=== PATIENT | male | born 1955 | race Caucasian/White ===

== ENCOUNTER 2016-07-14 07:36 | Day surgery (SDC) | payer OTHER ==
[2016-07-10 11:04] VITALS: BMI 24.6
[2016-07-14] MEDS ORDERED: PROPOFOL 20 ML ONE ×2 (07:40)
[2016-07-14 09:47] VITALS: BP 112/65; PULSE 62; TEMP 98
== END 2016-07-14 09:49 | disposition home or self-care (01) ==
LOC: FASU-ENDO 07:36
PROVIDERS: ATTEND Internal Medicine Gastroenterology
PROC: 0DJD8ZZ Inspection of Lower Intestinal Tract, Via Natural or Artificial Opening Endoscopic (ICD-10-PCS; principal; 2016-07-14 08:36)
DX: Z12.11 Encounter for screening for malignant neoplasm of colon (principal); Z80.0 Family history of malignant neoplasm of digestive organs

== ENCOUNTER 2017-06-05 17:08 | Emergency (ER) | payer OTHER ==
--- NOTE | 2017-06-05 17:14 | PDOC ---
History of Present Illness <Adrian Alaniz - Last Filed: 06/05/17 18:35> - History of Present Illness Initial Comments: 06/05/17 17:53 The patient is a 62 year old male, with no significant past medical history, who presents to the emergency department with his for abdominal pain around 5:00 pm. Patient describes his right mid-abdominal pain as sudden onset, sharp, radiates to right mid- back Patient states his current pain is progressively getting worse. Patient denies having experienced this type of pain before. Patient also states that hes been experiencing the urge to pee but does not produce much urine when he does go to the bathroom. He reports normal bowel movement. Patient also states that he currently feels nauseous. He denies history if kidney stones, denies history of abdominal issues. He denies any recent fevers, chills, headache or dizziness. He denies any recent vomit, diarrhea or constipation. He denies any recent chest pain or shortness of breath. He denies any recent dysuria or hematuria. Allergies: NKA Past surgical history: None reported. Social History: Nonsmoker. Denies EtOH use and recreational drug use. Primary Care Physician: Jared Muhammad <Sherine Chowdhury - Last Filed: 06/05/17 20:36> - General Chief Complaint: Pain Stated Complaint: ABDOMINAL PAIN Time Seen by Provider: 06/05/17 17:14 Past History - Past Medical History Anemia: No Asthma: No Cancer: No Cardiac Disorders: No CVA: No COPD: No CHF: No Dementia: No Diabetes: No GI Disorders: No Disorders: No HTN: No Hypercholesterolemia: No Liver Disease: No Seizures: No Thyroid Disease: No - Surgical History Abdominal Surgery: Yes Appendectomy: Yes Cardiac Surgery: No Cholecystectomy: No Lung Surgery: No Neurologic Surgery: No Orthopedic Surgery: Yes (FX LEFT THUMB AND RIGHT WRIST A CHILD) - Suicide/Smoking/Psychosocial Hx Smoking History: Former smoker Have you smoked in the past 12 months: No Number of Cigarettes Smoked Daily: 0 If you are a former smoker, when did you quit?: 1983 Hx Alcohol Use: No Drug/Substance Use Hx: No Substance Use Type: None Hx Substance Use Treatment: No <Adrian Alaniz - Last Filed: 06/05/17 18:35> <Sherine Chowdhury - Last Filed: 06/05/17 20:36> - Past Medical History Allergies/Adverse Reactions: Allergies Allergy/AdvReac Type Severity Reaction Status Date / Time No Known Allergies Allergy Verified 07/14/16 06:17 Home Medications: Ambulatory Orders Cetirizine HCl [Zyrtec -] 10 mg PO DAILY 07/10/16 Review of Systems - Review of Systems Comments:: 06/05/17 17:53 CONSTITUTIONAL: Absent: fever, chills, diaphoresis, generalized weakness, malaise, loss of appetite HEENT: Absent: rhinorrhea, nasal congestion, throat pain, throat swelling, difficulty swallowing, mouth swelling, ear pain, eye pain, visual changes CARDIOVASCULAR: Absent: chest pain, syncope, palpitations, irregular heart rate, lightheadedness , peripheral edema RESPIRATORY: Absent: cough, shortness of breath, dyspnea with exertion, orthopnea, wheezing, stridor, hemoptysis GASTROINTESTINAL: Present: right sided mid-abdominal pain, nausea, right sided mid-back pain Absent: abdominal distension, vomiting, diarrhea, constipation, melena, hematochezia GENITOURINARY: Present: urgency,frequency Absent: dysuria, hesitancy, hematuria, flank pain, genital pain MUSCULOSKELETAL: Absent: myalgia, arthralgia, joint swelling SKIN: Absent: rash, itching, pallor HEMATOLOGIC/IMMUNOLOGIC: Absent: easy bleeding, easy bruising, lymphadenopathy, frequent infections ENDOCRINE: Absent: unexplained weight gain, unexplained weight loss, heat intolerance, cold intolerance NEUROLOGIC: Absent: headache, focal weakness or paresthesias, dizziness, unsteady gait, seizure, mental status changes, bladder or bowel incontinence PSYCHIATRIC: Absent: anxiety, depression, suicidal or homicidal ideation, hallucinations. <Sherine Chowdhury - Last Filed: 06/05/17 20:36> ED Treatment Course - LABORATORY CBC & Chemistry Diagram: 06/05/17 18:00 06/05/17 18:00 - RADIOLOGY Radiograph Interpretation: 06/05/17 20:[address] w/out contrast Impression: Minimal to mild right hydroureteronephrosis is seen to the level of the lower pelvis. No definite current ureteral calculus is identified. Evaluation in this regard is somewhat difficult due to numerous periureteral phleboliths. A 2 mm urinary bladder calculus is visualized. Bilateral nonobstructing renal calculi. Reported by: Jared Olivera 06/05/171923 <Sherine Chowdhury - Last Filed: 06/05/17 20:36> Medical Decision Making - Medical Decision Making 06/05/17 18:35 Patient is now pain-free. Abdomen soft and nontender. Likely passage of kidney stone, or migration of the stone has ceased. CT pending. <Adrian Alaniz - Last Filed: 06/05/17 18:35> *DC/Admit/Observation/Transfer <Adrian Alaniz - Last Filed: 06/05/17 18:35> - Attestations Scribe Attestion: 06/05/17 17:55 Documentation prepared by Sherine Chowdhury, acting as chief medical director for Adrian Tipton MD. <Sherine Chowdhury - Last Filed: 06/05/17 20:36> Diagnosis at time of Disposition: Renal colic on right side - Discharge Dispostion Disposition: HOME Condition at time of disposition: Good - Referrals Referrals: Jared Muhammad [Primary Care Provider] - - Patient Instructions Additional Instructions: Stay well hydrated over the next several days. Call your doctor for referral to a urologist. Return to the emergency department immediately with ANY new, persistent or worsening symptoms. Continue any medications as previously prescribed by your physician. You should follow up with your primary doctor as soon as possible regarding today's emergency department visit. . Please make sure your doctor reviews the results of your emergency evaluation. Thank you for coming to the Emergency Department today for your care. It was a pleasure to see you today. Please note that your evaluation is INCOMPLETE until you follow-up with your doctor. - Post Discharge Activity
[2017-06-05] MEDS ORDERED: KETOROLAC TROMETHAMINE 30 MG/1 ML VIAL ONE (17:42)
[2017-06-05] MEDS ORDERED: TAMSULOSIN HCL 0.4 MG CAP.ER.24H (FP) PO ONE (17:45)
[2017-06-05] MEDS ORDERED: ONDANSETRON 4 MG/2 ML VIAL IVPB ONE (17:45)
[2017-06-05] MEDS ORDERED: KETOROLAC TROMETHAMINE 30 MG/1 ML VIAL IVPUSH ONE (17:45)
[2017-06-05] MEDS ORDERED: ONDANSETRON 4 MG/2 ML VIAL ONE (17:48)
[2017-06-05] MEDS ORDERED: TAMSULOSIN HCL 0.4 MG CAP.ER.24H (FP) ONE (17:48)
[2017-06-05] MEDS ORDERED: morphine CARPU-JECT 4 MG/1 ML DISP.SYRIN IVPUSH ONE (17:58)
[2017-06-05] MEDS ORDERED: morphine SULFATE 4 MG/ML VIAL ONE (17:59)
[2017-06-05 18:07] VITALS: BP 142/80; PULSE 52; TEMP 97.3; BMI 24.9
[2017-06-05 18:51] LABS: EOS % 4.7 % (0-4.5); MCH 29.9 pg (25.7-33.7); MCHC 32.5 g/dl (32.0-35.9); MEAN PLT VOLUME 7.6 fl (7.5-11.1); NEUT % 54.3 % (42.8-82.8); PLATELET COUNT 221 K/MM3 (134-434); RDW 12.3 % (11.9-15.9); WHITE BLOOD COUNT 5.2 K/mm3 (4.0-10.8)
[2017-06-05 18:55] LABS: INR 0.94 (0.82-1.09); PROTHROMBIN TIME (PATIENT) 10.5 SEC (10.2-13.0)
[2017-06-05 18:59] LABS: ALBUMIN 4.2 g/dl (3.5-5.0); ALK PHOS 64 U/L (32-92); ANION GAP 10 (8-16); BILIRUBIN,TOTAL 0.5 mg/dl (0.2-1.0); CALCIUM 9.2 mg/dl (8.4-10.2); CO2 26 mmol/L (22-28); CPK 75 IU/L (39-308); CREATININE 0.7 mg/dl (0.6-1.3); GLUCOSE,RANDOM 92 mg/dl (74-106); SGOT/AST 19 U/L (10-42); SGPT/ALT 15 U/L (10-40); TOT PROT 7.1 g/dl (6.4-8.3)
[2017-06-05 19:07] LABS: TROPONIN I (DFP) < 0.03 ng/ml (0.03-0.50)
[2017-06-05 20:26] LABS: URINE APPEARANCE Clear; URINE BILIRUBIN Negative (NEGATIVE); URINE GLUCOSE (UA) Negative (NEGATIVE); URINE KETONE Trace (NEGATIVE); URINE LEUK ESTERASE Negative (NEGATIVE); URINE NITRITE Negative (NEGATIVE); URINE PROTEIN Negative (NEGATIVE); URINE UROBILINOGEN 0.2 (0.2-1.0)
[2017-06-05 20:28] LABS: URINE BLOOD 3+ (NEGATIVE); URINE COLOR YELLOW
--- NOTE | 2017-06-05 20:35 | PDOC ---
*Physical Exam - Vital Signs Last Vital Signs Temp Pulse Resp BP Pulse Ox 97.3 F L 52 L 18 142/80 100 06/05/17 17:10 06/05/17 17:10 06/05/17 17:10 06/05/17 17:10 06/05/17 17:10 ED Treatment Course - LABORATORY CBC & Chemistry Diagram: 06/05/17 18:00 06/05/17 18:00 - ADDITIONAL ORDERS Additional order review: Laboratory Results 06/05/17 06/05/17 06/05/17 20:00 18:00 18:00 PT with INR 10.5 INR 0.94 L Sodium 136 Potassium 3.7 Chloride 100 Carbon Dioxide 26 Anion Gap 10 BUN 14 Creatinine 0.7 Creat Clearance w eGFR > 60 Random Glucose 92 Calcium 9.2 Total Bilirubin 0.5 AST 19 ALT 15 Alkaline Phosphatase 64 Creatine Kinase 75 Troponin I < 0.03 L Total Protein 7.1 Albumin 4.2 Urine Color Yellow Urine Appearance Clear Urine pH 6.0 Ur Specific [place] 1.010 Urine Protein Negative Urine Glucose (UA) Negative Urine Ketones Trace Urine Blood 3+ H Urine Nitrite Negative Urine Bilirubin Negative Urine Urobilinogen 0.2 Ur Leukocyte Esterase Negative 06/05/17 18:00 RBC 5.18 MCV 92.0 MCHC 32.5 RDW 12.3 MPV 7.6 Neutrophils % 54.3 Lymphocytes % 32.9 Monocytes % 7.1 Eosinophils % 4.7 H Basophils % 1.0 - Medications Given in the ED: ED Medications Discontinued Medications Generic Name Dose Route Start Last Admin Trade Name Joseq PRN Reason Stop Dose Admin Ketorolac Tromethamine 30 mg 06/05/17 17:45 06/05/17 17:45 Toradol Injection - IVPUSH 06/05/17 17:46 30 mg ONCE ONE Administration Morphine Sulfate 4 mg 06/05/17 17:58 06/05/17 18:01 Morphine Injection - IVPUSH 06/05/17 17:59 4 mg ONCE ONE Administration Ondansetron HCl 4 mg 06/05/17 17:45 06/05/17 17:50 Zofran Injection IVPB 06/05/17 17:46 4 mg ONCE ONE Administration Tamsulosin HCl 0.4 mg 06/05/17 17:45 06/05/17 17:50 Flomax - PO 06/05/17 17:46 0.4 mg ONCE ONE Administration Progress Note - Progress Note Progress Note: Care of this patient was transferred to me from Dr. Palomares at 1900 hrs. Patient is a 62-year-old male who comes in complaining of right flank pain. Patient symptoms were suggestive of acute renal colic. Patient was given fluids and pain medication and antiemetics and a workup was initiated. 20:00 On reevaluation patient's symptoms have resolved he feels much better CAT scan shows a 2 mm stone in the bladder with some residual hydronephrosis There are also several stones still in the kidneys the largest one is one half by 0.3 cm Patient's labs are unremarkable. He has a normal CBC including normal white count and no left shift his renal function is normal and his urinalysis shows a small amount of blood but otherwise no evidence of infection Assessment and plan: This is a 62-year-old male who comes in with renal colic. Patient passed a stone in the emergency room and symptoms resolved. Patient was given copies of his CAT scan and told he needs to follow-up with a urologist. Patient discharged home with a strainer. *DC/Admit/Observation/Transfer Diagnosis at time of Disposition: Renal colic on right side - Discharge Dispostion Disposition: HOME Condition at time of disposition: Good Admit: No - Referrals Referrals: Jared Muhammad [Primary Care Provider] - - Patient Instructions Additional Instructions: Stay well hydrated over the next several days. Call your doctor for referral to a urologist. Return to the emergency department immediately with ANY new, persistent or worsening symptoms. Continue any medications as previously prescribed by your physician. You should follow up with your primary doctor as soon as possible regarding today's emergency department visit. . Please make sure your doctor reviews the results of your emergency evaluation. Thank you for coming to the Emergency Department today for your care. It was a pleasure to see you today. Please note that your evaluation is INCOMPLETE until you follow-up with your doctor. - Post Discharge Activity
[2017-06-05 21:23] LABS: URINE WBC 0-2 (0-2)
== END 2017-06-05 20:36 | disposition home or self-care (01) ==
LOC: FER 17:08
PROC: 3E0333Z Introduction of Anti-inflammatory into Peripheral Vein, Percutaneous Approach (ICD-10-PCS; principal; 2017-06-05)
PROC: 3E033NZ Introduction of Analgesics, Hypnotics, Sedatives into Peripheral Vein, Percutaneous Approach (ICD-10-PCS; 2017-06-05)
PROC: 3E033GC Introduction of Other Therapeutic Substance into Peripheral Vein, Percutaneous Approach (ICD-10-PCS; 2017-06-05)
DX: N20.0 Calculus of kidney (principal)
CPT/HCPCS: 36415; 74176; 80053; 81003; 81015; 82550; 84484; 85025; 85610; 99283-25

== ENCOUNTER 2019-12-27 05:52 | Emergency (ER) | payer OTHER ==
[2019-12-27 06:02] VITALS: BP 139/83; PULSE 57; TEMP 97.6; BMI 22.1
[2019-12-27] MEDS ORDERED: SODIUM CHLORIDE 1,000 ML IV STA (06:13)
--- NOTE | 2019-12-27 06:14 | PDOC ---
History of Present Illness - General Chief Complaint: Pain, Acute Stated Complaint: LEFT FLAN PAIN Time Seen by Provider: 12/27/19 05:54 - History of Present Illness Initial Comments: 12/27/19 06:24 This 64-year-old man with a history of renal colic but no other significant past medical history presents with left flank pain for the last 12 hours. Patient noted onset of discomfort late yesterday afternoon. He was able to sleep overnight but was awakened at approximately 5 AM with more severe left flank discomfort with nausea. Symptoms were similar to those of his first episode of renal colic (right-sided) for which she was seen here in 2017. Stone was passed spontaneously and patient had no interim episodes of colic. No fever/chills, dysuria, hematuria. No daily medications Allergies: Environmental only Non-smoker/no daily alcohol or other recreational drug use History of appendectomy Past History - Medical History Allergies/Adverse Reactions: Allergies Allergy/AdvReac Type Severity Reaction Status Date / Time No Known Allergies Allergy Verified 07/14/16 06:17 Home Medications: Ambulatory Orders Cetirizine HCl [Zyrtec -] 10 mg PO DAILY 07/10/16 Anemia: No Asthma: No Cancer: No Cardiac Disorders: No CVA: No COPD: No CHF: No Dementia: No Diabetes: No GI Disorders: No Disorders: No HTN: No Hypercholesterolemia: No Liver Disease: No Seizures: No Thyroid Disease: No - Surgical History Abdominal Surgery: Yes Appendectomy: Yes Cardiac Surgery: No Cholecystectomy: No Lung Surgery: No Neurologic Surgery: No Orthopedic Surgery: Yes (FX LEFT THUMB AND RIGHT WRIST A CHILD) - Psycho-Social/Smoking History Smoking History: Never smoked Have you smoked in the past 12 months: No Number of Cigarettes Smoked Daily: 0 If you are a former smoker, when did you quit?: 1983 Information on smoking cessation initiated: No - Substance Abuse Hx (Audit-C & DAST Scrn) How often the patient has a drink containing alcohol: Never Score: In Men: 4 or > Positive; In Women: 3 or > Positive: 0 Screen Result (Pos requires Nsg. Audit-10AR): Negative In the last yr the pt used illegal drug/Rx for NonMed reason: No Score: Yes response is considered Positive: 0 Screen Result (Positive result requires Nsg. DAST-10): Negative Review of Systems - Review of Systems Able to Perform ROS?: Yes Comments:: 12 point review of systems is negative except for what is noted in the history of present illness *Physical Exam - Vital Signs Last Vital Signs Temp Pulse Resp BP Pulse Ox 97.6 F 57 L 20 139/83 100 12/27/19 05:54 12/27/19 05:54 12/27/19 05:54 12/27/19 05:54 12/27/19 05:54 - Physical Exam GENERAL: Adult male, alert and oriented x3, in mild distress secondary to left flank pain HEAD: Normal with no signs of trauma. EYES: PERRLA, EOMI, sclera anicteric, conjunctiva clear. ENT: Ears normal, nares patent, oropharynx clear without exudates. Dry mucous membranes. NECK: Normal range of motion, supple without lymphadenopathy, JVD, or masses. LUNGS: Breath sounds equal, clear to auscultation bilaterally. No wheezes, and no crackles. HEART:Regular rate and rhythm, normal S1 and S2 without murmur, rub or gallop. ABDOMEN:.normal bowel sounds No guarding,tenderness or rebound.No masses No distention. EXTREMITIES: Normal range of motion, no edema. No clubbing or cyanosis. No erythema, or tenderness. NEUROLOGICAL: Cranial nerves II through XII grossly intact. Normal speech. No focal neurological deficits. MUSCULOSKELETAL: Back non-tender to palpation, no CVA tenderness SKIN: Warm, Dry, normal turgor, no rashes or lesions noted. ED Treatment Course - LABORATORY CBC & Chemistry Diagram: 12/27/19 06:16 12/27/19 06:16 Medical Decision Making - Medical Decision Making 64-year-old man with history of renal colic but no other serious medical problems presents with 12 hours of progressive left flank pain. Although he had nausea a few hours ago, he states that this symptom has seemingly resolved. Exam as noted IV access obtained. Toradol 30 mg IV ordered as well as a liter normal saline IV Renal stone protocol CT planned 12/27/19 07:12 Case signed out to incoming physician at start of shift Discharge - Discharge Information Problems reviewed: Yes Clinical Impression/Diagnosis: Abdominal pain, Kidney stone Condition: Improved Disposition: HOME - Follow up/Referral Referrals: Chapito Shay MD [Staff Physician] - - Patient Discharge Instructions Patient Printed Discharge Instructions: DI for Kidney Stones Additional Instructions: Please follow up with the urologist within 1 week. If you are unable to locate the information for the urologist you have seen in the past, a referral has been included in this paperwork. You may take motrin or ibuprofen (600mg) every 6 hours as needed for pain. Drink plenty of fluids and stay hydrated. Return to the emergency department if you have any new, worsening, or concerning symptoms. We hope you feel better soon! - Post Discharge Activity
[2019-12-27] MEDS ORDERED: KETOROLAC TROMETHAMINE 30 MG/1 ML VIAL IVPUSH ONE (06:23)
[2019-12-27] MEDS ORDERED: KETOROLAC TROMETHAMINE 30 MG/1 ML VIAL ONE (06:24)
[2019-12-27 07:13] LABS: BASO % 0.7 % (0-2.0); EOS % 4.5 % (0-4.5); HEMATOCRIT 38.4 % (35.4-49); HEMOGLOBIN 12.6 GM/dL (11.7-16.9); LYMPH % 35.2 % (8-40); MCHC 32.8 g/dl (32.0-35.9); MEAN CELL VOLUME 91.5 fl (80-96); MEAN PLT VOLUME 7.1 fl (7.5-11.1); MONO % 9.5 % (3.8-10.2); NEUT % 50.1 % (42.8-82.8); PLATELET COUNT 173 K/MM3 (134-434); RBC 4.19 M/mm3 (4.00-5.60); WHITE BLOOD COUNT 5.4 K/mm3 (4.0-10.0)
[2019-12-27 08:17] LABS: ALBUMIN 3.5 g/dl (3.4-5.0); BILIRUBIN,TOTAL 0.8 mg/dL (0.2-1); BLOOD UREA NITROGEN 18.5 mg/dL (7-18); CALCIUM 8.7 mg/dL (8.5-10.1); CREATININE 0.8 mg/dL (0.55-1.3); POTASSIUM 3.8 mmol/L (3.5-5.1); TOT PROT 6.4 g/dl (6.4-8.2)
--- NOTE | 2019-12-27 10:39 | PDOC ---
*Physical Exam - Vital Signs Last Vital Signs Temp Pulse Resp BP Pulse Ox 97.6 F 57 L 20 139/83 100 12/27/19 05:54 12/27/19 05:54 12/27/19 05:54 12/27/19 05:54 12/27/19 05:54 - Physical Exam 12/27/19 10:[address] Jacome at 0700 Briefly, pt presented with 12 hours of L flank pain similar to sxs he had in past when he had renal colic. Pt was given toradol with signifcant improvement in pain. CTAP and UA pending during signout On re-eval, pt's pain continues to be well controlled, he rates it at a 2-3/10 in the L flank. CTAP with b/l renal stones, but no obstructing stones down stream UA with RBCs - pt likely passed stone at some point He is well appearing, abd exam benign with no ttp Labs reviewed and unremarkable He will f/u with the urologist he has seen in the past but as he can't remember the name, we included a referral in case he can not locate the contact info He is well appearing and clinically stable for DC home. I discussed the physical exam findings, ancillary test results and final diagnoses with the patient. I answered all of the patient's questions. The patient was satisfied with the care received and felt comfortable with the discharge plan and treatment plan. The patient will call their primary care physician within 24 hours to arrange follow-up and will return to the Emergency Department with any new, persistent or worsening symptoms. ED Treatment Course - LABORATORY CBC & Chemistry Diagram: 12/27/19 06:16 12/27/19 06:16 - ADDITIONAL ORDERS Additional order review: Laboratory Results 12/27/19 12/27/19 09:12 06:16 Sodium 140 Potassium 3.8 Chloride 106 Carbon Dioxide 28 Anion Gap 6 L BUN 18.5 H Creatinine 0.8 Est GFR (CKD-EPI)AfAm 107.89 Est GFR (CKD-EPI)NonAf 93.09 Random Glucose 124 H Calcium 8.7 Total Bilirubin 0.8 AST 28 ALT 19 Alkaline Phosphatase 60 Total Protein 6.4 Albumin 3.5 Urine Color [place] Urine Appearance Clear Urine pH 6.0 Urine Protein Negative Urine Glucose (UA) Negative Urine Ketones Negative Urine Blood Trace-intact Urine Nitrite Negative Urine Bilirubin Negative Urine Urobilinogen 1.0 Ur Leukocyte Esterase Negative Urine RBC 10-20 Urine WBC 2-5 12/27/19 06:16 RBC 4.19 MCV 91.5 MCHC 32.8 RDW 13.0 MPV 7.1 L Neutrophils % 50.1 Lymphocytes % 35.2 Monocytes % 9.5 Eosinophils % 4.5 Basophils % 0.7 - Medications Given in the ED: ED Medications Discontinued Medications Generic Name Dose Route Start Last Admin Trade Name Andrea PRN Reason Stop Dose Admin Sodium Chloride 1,000 mls @ 1,000 mls/hr 12/27/19 06:13 12/27/19 06:15 Normal Saline - IV 12/27/19 07:12 1,000 mls/hr ASDIR STA Administration Ketorolac Tromethamine 30 mg 12/27/19 06:23 12/27/19 06:29 Toradol Injection - IVPUSH 12/27/19 06:24 30 mg ONCE ONE Administration Discharge - Discharge Information Problems reviewed: Yes Clinical Impression/Diagnosis: Abdominal pain, Kidney stone Condition: Improved Disposition: HOME - Admission No - Follow up/Referral Referrals: Chapito Shay MD [Staff Physician] - - Patient Discharge Instructions Patient Printed Discharge Instructions: DI for Kidney Stones Additional Instructions: Please follow up with the urologist within 1 week. If you are unable to locate the information for the urologist you have seen in the past, a referral has been included in this paperwork. You may take motrin or ibuprofen (600mg) every 6 hours as needed for pain. Drink plenty of fluids and stay hydrated. Return to the emergency department if you have any new, worsening, or concerning symptoms. We hope you feel better soon! - Post Discharge Activity
== END 2019-12-27 10:45 | disposition home or self-care (01) ==
LOC: FER 05:52
PROC: 3E033GC Introduction of Other Therapeutic Substance into Peripheral Vein, Percutaneous Approach (ICD-10-PCS; principal; 2019-12-27)
PROC: 3E0337Z Introduction of Electrolytic and Water Balance Substance into Peripheral Vein, Percutaneous Approach (ICD-10-PCS; principal; 2019-12-27)
DX: N20.0 Calculus of kidney (principal)
CPT/HCPCS: 36415; 74176-TC; 80053; 81003; 81015; 85025; 99285-25

== ENCOUNTER 2019-12-31 07:06 | Emergency (ER) | payer OTHER ==
[2019-12-31] MEDS ORDERED: KETOROLAC TROMETHAMINE 30 MG/1 ML VIAL IVPUSH ONE (07:10)
[2019-12-31] MEDS ORDERED: SODIUM CHLORIDE 0.9% 1000 ML INFUS.BAG IV ONE ×2 (07:10→08:36)
[2019-12-31 07:13] VITALS: BMI 22.1
--- NOTE | 2019-12-31 07:14 | PDOC ---
History of Present Illness - General Chief Complaint: Pain, Acute Stated Complaint: LT FLANK PAIN Time Seen by Provider: 12/31/19 07:07 - History of Present Illness Initial Comments: 12/31/19 08:04 64yo male with pmhx of renal colic back in 2017 with worsening flank pain. Pt was seen in the ER on 12/25 with L flank pain. UA at that time showed blood/rbc and ct showed stones in the L kidney, no obstructive uropathy. Pt states he has been taking ibuprofen 600mg every 6 hours since the . Pt states he took his 's oxycodone last night and again at 5am today without relief of the pain. Pt also states he has been constipated since thursday. States he has only had 1 bm since. Pt denies dysuria, but c/o hesitancy with his flow. Pt c/o L flank pain. No n/v. No f/c. No cp/sob. No other complaints. The CT from the did s how fecal retention. Past History - Medical History Allergies/Adverse Reactions: Allergies Allergy/AdvReac Type Severity Reaction Status Date / Time No Known Allergies Allergy Verified 07/14/16 06:17 Home Medications: Ambulatory Orders Cetirizine HCl [Zyrtec -] 10 mg PO DAILY 07/10/16 Ibuprofen [Motrin -] 600 mg PO TID PRN 12/31/19 Magnesium Citrate [Citroma -] 300 ml PO ONCE #1 bottle 12/31/19 Tamsulosin HCl [Flomax] 0.4 mg PO DAILY #7 cap.er.24h 12/31/19 Anemia: No Asthma: No Cancer: No Cardiac Disorders: No CVA: No COPD: No CHF: No Dementia: No Diabetes: No GI Disorders: No Disorders: No HTN: No Hypercholesterolemia: No Liver Disease: No Seizures: No Thyroid Disease: No - Surgical History Abdominal Surgery: Yes Appendectomy: Yes Cardiac Surgery: No Cholecystectomy: No Lung Surgery: No Neurologic Surgery: No Orthopedic Surgery: Yes (FX LEFT THUMB AND RIGHT WRIST A CHILD) - Psycho-Social/Smoking History Smoking History: Never smoked Have you smoked in the past 12 months: No Number of Cigarettes Smoked Daily: 0 If you are a former smoker, when did you quit?: 1984 Review of Systems - Review of Systems Able to Perform ROS?: Yes Is the patient limited [place] proficient: No Constitutional: No: Chills, Fever HEENTM: No: Symptoms Reported Respiratory: No: Cough, Shortness of Breath Cardiac (ROS): No: Chest Pain, Lightheadedness, Palpitations ABD/GI: Yes: Constipated, Abdominal cramping. No: Diarrhea, Nausea, Vomiting : Yes: Flank Pain. No: Burning, Dysuria Integumentary: No: Rash Neurological: No: Headache, Numbness, Paresthesia, Tingling, Tremors, Weakness, Ataxia All Other Systems: Reviewed and Negative *Physical Exam - Vital Signs Last Vital Signs Temp Pulse Resp BP Pulse Ox 98.1 F 48 L 18 123/67 97 12/31/19 07:09 12/31/19 07:09 12/31/19 07:09 12/31/19 07:09 12/31/19 07:09 - Physical Exam General Appearance: Yes: Nourished, Appropriately Dressed. No: Apparent Distress HEENT: positive: EOMI, Normal Voice Neck: positive: Supple Respiratory/Chest: positive: Lungs Clear, Normal Breath Sounds. negative: Chest Tender, Respiratory Distress Cardiovascular: positive: Regular Rhythm, S1, S2, Bradycardia Gastrointestinal/Abdominal: positive: Soft. negative: Guarding, Rebound, Tenderness Musculoskeletal: positive: CVA Tenderness, CVA Tenderness (L) Extremity: positive: Normal Inspection, Normal Range of Motion, Other (ambu latory with a steady gait). negative: Swelling, Calf Tenderness Integumentary: positive: Normal Color, Dry, Warm Neurologic: positive: Fully Oriented, Alert, Motor Strength 5/5 ED Treatment Course - LABORATORY CBC & Chemistry Diagram: 12/31/19 07:20 12/31/19 07:20 Medical Decision Making - Medical Decision Making 12/31/19 08:00 a/p: 64yo male with L flank pain -prior ct showed renal stones, some 2mm in the central part of the kidney, suspect those are passing, a larger 8mm stones was seen in the L pole of the kidney -no hydro or obstructive uropathy then -suspect one of the 2mm stones has passed -also with fecal retention, suspect concomitant constipation -POCUS u/s did not show any hydro, no jets visualized, but bladder decompressed as patient just urinated -will send labs, ivf hydration, toradol for pain -will monitor and reassess 12/31/19 08:10 pt denies pain at this time on re-eval 12/31/19 08:25 no elevated wbc normal renal function 12/31/19 08:36 pt has urinated, dark yellow urine, no visible blood will give another liter ivf 12/31/19 09:15 +blood and rbc in the urine suspect passing/passed another kidney stone, no hydro on ultrasound pain controlled will give flomax will need urology follow up 12/31/19 09:24 pt states pain improved feels better and wants to go home 12/31/19 09:24 states he feels he needs to have a bm, but states he wants to take mag citrate at home and not here in the ER. discussed flomax states he has been calling DR. Ortiz (uro from [place]) but has not been able to get in, discussed follow up with [facility]. will give referral names. stable for dc to home Discharge - Discharge Information Problems reviewed: Yes Clinical Impression/Diagnosis: Renal colic on left side, Constipation Condition: Stable Disposition: HOME - Admission No - Additional Discharge Information Prescriptions: Magnesium Citrate [Citroma -] 300 ml PO ONCE #1 bottle Tamsulosin HCl [Flomax] 0.4 mg PO DAILY #7 cap.er.24h - Follow up/Referral Referrals: Chapito Shay MD [Staff Physician] - Dorita Paulino MD [Staff Physician] - Óscar Medel MD [Staff Physician] - - Patient Discharge Instructions Patient Printed Discharge Instructions: DI for Kidney Stones, DI for Constipation Additional Instructions: Please take all medications as prescribed. Please drink plenty of fluids today. Your next dose of the flomax is due tomorrow 01/01/2020. Please call the urologist to schedule a follow up appointment for this week. Please return to the ER with any further concerns or complaints. - Post Discharge Activity
[2019-12-31] MEDS ORDERED: KETOROLAC TROMETHAMINE 30 MG/1 ML VIAL ONE (07:18)
[2019-12-31 08:11] LABS: EOS % 3.7 % (0-4.5); HEMATOCRIT 35.1 % (35.4-49); HEMOGLOBIN 11.8 GM/dl (11.7-16.9); LYMPH % 21.3 % (8-40); MCH 29.9 pg (25.7-33.7); MCHC 33.7 g/dl (32.0-35.9); MEAN CELL VOLUME 88.7 fl (80-96); MEAN PLT VOLUME 6.6 fl (7.5-11.1); MONO % 10.9 % (3.8-10.2); NEUT % 63.1 % (42.8-82.8); PLATELET COUNT 184 K/MM3 (134-434); RBC 3.96 M/mm3 (4.00-5.60); RDW 12.1 % (11.9-15.9); WHITE BLOOD COUNT 6.2 K/mm3 (4.0-10.8)
[2019-12-31 08:19] LABS: ALBUMIN 3.4 g/dl (3.4-5.0); BILIRUBIN,TOTAL 0.8 mg/dl (0.2-1); CALCIUM 8.7 mg/dl (8.5-10); POTASSIUM 3.5 mmol/L (3.5-5.1); TOT PROT 5.9 g/dl (6.4-8.2)
[2019-12-31] MEDS ORDERED: TAMSULOSIN HCL 0.4 MG CAP PO ONE (09:14)
[2019-12-31] MEDS ORDERED: TAMSULOSIN HCL 0.4 MG CAP ONE (09:16)
[2019-12-31 09:31] VITALS: BP 115/66; PULSE 49; TEMP 97.5
== END 2019-12-31 09:56 | disposition home or self-care (01) ==
LOC: FER 07:06
PROC: 3E033NZ Introduction of Analgesics, Hypnotics, Sedatives into Peripheral Vein, Percutaneous Approach (ICD-10-PCS; principal; 2019-12-31)
DX: N23 Unspecified renal colic (principal)
CPT/HCPCS: 36415; 76775; 80053; 81003; 81015; 85025; 87086; 99285-25

== ENCOUNTER 2020-05-10 07:37 | Day surgery (SDC) | payer OTHER ==
[2020-05-07 14:10] VITALS: BMI 21.8
[2020-05-10] MEDS ORDERED: PROPOFOL 20 ML ONE ×2 (08:19→08:31)
[2020-05-10] MEDS ORDERED: LIDOCAINE HCL/PF 2% SDV 5ML VIAL ONE (08:19)
[2020-05-10 09:13] VITALS: BP 98/62; PULSE 52; TEMP 97.8
== END 2020-05-10 09:33 | disposition home or self-care (01) ==
LOC: FASU-ENDO 07:37
PROVIDERS: ATTEND Internal Medicine Gastroenterology
PROC: 0DB68ZX Excision of Stomach, Via Natural or Artificial Opening Endoscopic, Diagnostic (ICD-10-PCS; 2020-05-10)
PROC: 0DB98ZX Excision of Duodenum, Via Natural or Artificial Opening Endoscopic, Diagnostic (ICD-10-PCS; principal; 2020-05-10 08:28)
DX: K29.50 Unspecified chronic gastritis without bleeding (principal)
CPT/HCPCS: 88305-TC; 88342-TC